=== PATIENT | male | born 1935 | race Caucasian/White ===

== ENCOUNTER → 2017-02-25 | Outpatient (CLI) | payer MEDICARE, OTHER ==
[~2017-02-25] MED LIST: ASPI81CH CHEW; DORZ1SOL2 OU; DORZ2SOL7 EACH EYE; KETO2CRE TOPICAL; LATA0.002 EACH EYE; LEVO75TA3 PO
[2017-02-25 11:54] LABS: AUTOMATED NEUTROPHIL # 3.4 TH/MM3 (1.8-7.7); BASOPHIL # 0.1 TH/MM3 (0-0.2); EOSINOPHIL # 0.1 TH/MM3 (0-0.4); EOSINOPHIL % 2.2 % (0.0-4.0); HEMATOCRIT 36.6 % (39.0-51.0); HEMO FLAGS DIFF FINAL; LYMPH % 19.3 % (9.0-44.0); MEAN CELL VOLUME 93.3 FL (80.0-100.0); MEAN CORPUSCULAR HEMOGLOBIN 31.1 PG (27.0-34.0); MEAN CORPUSCULAR HGB CONC 33.3 % (32.0-36.0); MONO % 10.6 % (0.0-8.0); NEUT % 66.9 % (16.0-70.0); PLATELET COUNT 158 TH/MM3 (150-450); RED BLOOD COUNT 3.92 MIL/MM3 (4.50-5.90); RED CELL DISTRIBUTION WIDTH 14.3 % (11.6-17.2); WHITE BLOOD COUNT 5.1 TH/MM3 (4.0-11.0)
[2017-02-25 12:27] LABS: ANION GAP 5 MEQ/L (5-15); AST (GOT) 23 U/L (15-37); BICARBONATE 30.9 MEQ/L (21.0-32.0); BLOOD UREA NITROGEN 29 MG/DL (7-18); CHLORIDE 106 MEQ/L (98-107); GLOMERULAR FILTRATION RATE 71 ML/MIN (>89); GLUCOSE,FASTING 95 MG/DL (74-99); POTASSIUM 4.4 MEQ/L (3.5-5.1); SODIUM (NA) 142 MEQ/L (136-145)
[2017-02-25 12:37] LABS: ALKALINE PHOSPHATASE 89 U/L (45-117); ALT (GPT) 18 U/L (12-78); FREE T4 1.36 NG/DL (0.76-1.46); LDL CHOLESTEROL 156 MG/DL (0-99); TOTAL BILIRUBIN ADULT 0.5 MG/DL (0.2-1.0)
== END ==
LOC: PLAB 08:30
PROVIDERS: ATTEND Family Medicine
DX: I10 Essential (primary) hypertension (principal); E78.5 Hyperlipidemia, unspecified; E03.9 Hypothyroidism, unspecified; Z12.5 Encounter for screening for malignant neoplasm of prostate
CPT/HCPCS: 80053; 80061; 84439; 84443; 85025; G0103

== ENCOUNTER 2017-07-04 13:24 | Day surgery (SDC) | payer MEDICARE, OTHER ==
[2017-07-04 14:49] VITALS: BP 192/112; PULSE 60; RESP 18; TEMP 97.7; O2SAT 97
--- NOTE | 2017-07-04 16:16 | RADRPT ---
EXAM DATE/TIME: 07/04/2017 00:00 [facility] COMPARISON : INDICATIONS : Endoleak post AAA OBJECTIVE: Temperature: 97.7 Heart Rate: 60 Blood Pressure: 192/112 Respiratory: 19 Oximetry: 97 PNEUMONIA VACCINE: HISTORY OF PRESENT ILLNESS: The patient is an 82-year-old who underwent endograft repair of an infrarenal abdominal aortic aneury sm in 2014. The patient was noted to have enlargement of the aneurysm sac on its followup CT examinat ion in 2015. The patient underwent attempt at endoleak occlusion in 2015. The followup CT examination of 2016 demonstrates continued enlargement of the aneurysm sac with either endoleak along the care management coordinator ior aspect of the aneurysm sac or endothelialization of the aneurysm sac. PAST MEDICAL HISTORY : 1. Congestive heart failure. 2. Hypertension. 3. Chronic obstructive pulmonary disease. 4. Gastroesophageal reflux disease. 5. endoleak 6. Hypercholesterolemia. 7. Carcinoma, colon. 8. glaucoma; hard of hearing; anxiety PAST SURGICAL HISTORY : 1. abdominal aortic aneurysm repair (AAA) 2. Endoleak repair post AAA 3. bilateral cataract 4. TURP 5. cervical fusion SOCIAL HISTORY : Tobacco;former. Patient has a ALLERGIES: 1. cefazolin 2. diazepam 3. ceftriaxone 4. Cipro MEDICATIONS: 1. Ehdnvwx24 mg q.d. 2. Cosopt Opth Drops 22.3-6.8 mg q.d. 3. Ketoconazole 2% topical cream prn 4. latanoprost opth drops 0.005% drops q.d. 5. levothyroxine 75 mcg q.d. IMAGING STUDIES: The CT scans from 2014, 2015 2016 were reviewed. PHYSICAL EXAM: Limited evaluation was performed. The patient is a well-developed well-nourished, mildly debilitated 82 year-old. The patient denies shortness of breath or chest pain. Cardiovascular: Regular rate rhythm. Pulmonary: The lungs are clear. Abdomen: The patient's aortic aneurysm is easily palpable from the abdominal wall. ASSESSMENT: The patient continues to have enlargement of the aneurysm sac. There is contrast enhancement along th e posterior aspect of the aneurysm sac I do not see a feeding vessel. The graft itself appears intact . The appearance of this is quite unusual and could represent endothelization of the clot within the aneurysm sac. The enlargement of the aneurysm sac is concerning. The risks, benefits and potential co mplications of intervening versus watchful waiting were discussed in detail with the patient, his wif e and the patient's son the telephone. PLAN: The family is going to discuss the options which were given. If a decision is made to proceed with at tempt at repeat treatment of the aneurysm sac this procedure will be scheduled at their convenience. TIME SPENT: 30 minutes. Jamil Matias MD on July 04, 2017 at 15:59 Board Certified Radiologist. This report was verified electronically.
== END 2017-07-04 15:35 | disposition home or self-care (01) ==
LOC: HROP 13:24 → HRIP 13:26 → HROP 15:35
PROVIDERS: ATTEND Surgery Vascular Surgery
DX: I71.4 Abdominal aortic aneurysm, without rupture (principal)

== ENCOUNTER 2017-08-08 07:57 | Day surgery (SDC) | payer MEDICARE, OTHER ==
[2017-08-08] VITALS (8 sets, daily range): BP systolic 137–180; BP diastolic 61–104; PULSE 48–61; RESP 16–20; TEMP 97.3–97.8; O2SAT 94–98
[~2017-08-08] VITALS: Ht 172.7 cm; Wt 72.7 kg
[~2017-08-08 07:57] MED LIST changes: -DORZ1SOL2 OU
[2017-08-08] MEDS ORDERED: GELATIN 12 MM/7 MM FOAM I-ARTERIAL ONE (07:58)
[2017-08-08] MEDS ORDERED: IODIXANOL 320 MG/ML 50 ML VIAL (for RAD SPEC) I-ARTERIAL ONE (07:58)
[2017-08-08] MEDS ORDERED: CHLORHEXIDINE GLUCONATE 2 % 1 PACK (2 CLOTHS) TOPICAL PRN (08:30)
[2017-08-08] MEDS ORDERED: INSULIN HUMAN REGULAR 1,000 UNITS/10 ML VIAL SQ PRN (08:30)
[2017-08-08] MEDS ORDERED: SODIUM CHLOR 0.9% 1000 ML INJ 1,000 ML IV SCH (08:30)
[2017-08-08] MEDS ORDERED: POVIDONE IODINE 5% (ANTISEPSIS KIT) 4 APPLICATIONS EACH NARE PRN (08:30)
[2017-08-08] MEDS ORDERED: METOPROLOL TARTRATE 25 MG TAB PO PRN (08:30)
[2017-08-08] MEDS ORDERED: SODIUM CHLORID 0.9% 500 ML IV PRN (08:30)
[2017-08-08] MEDS ORDERED: LACTATED RINGER'S 1000 ML IV PRN (08:30)
[2017-08-08 09:18] LABS: BASOPHIL % 0.9 % (0.0-2.0); EOSINOPHIL # 0.1 TH/MM3 (0-0.4); HEMATOCRIT 36.4 % (39.0-51.0); LYMPH % 19.4 % (9.0-44.0); LYMPHOCYTE # 0.9 TH/MM3 (1.0-4.8); MEAN CORPUSCULAR HEMOGLOBIN 31.8 PG (27.0-34.0); MEAN CORPUSCULAR HGB CONC 33.1 % (32.0-36.0); MEAN PLATELET VOLUME 7.2 FL (7.0-11.0); MONO % 11.4 % (0.0-8.0); MONOCYTE # 0.5 TH/MM3 (0-0.9); NEUT % 66.3 % (16.0-70.0); PLATELET COUNT 143 TH/MM3 (150-450); RED BLOOD COUNT 3.79 MIL/MM3 (4.50-5.90); RED CELL DISTRIBUTION WIDTH 14.6 % (11.6-17.2); WHITE BLOOD COUNT 4.5 TH/MM3 (4.0-11.0)
[2017-08-08 09:21] LABS: CREATININE 0.9 MG/DL (0.60-1.30)
[2017-08-08 09:29] LABS: INTERNATIONAL NORMALIZED RATIO 1.1 RATIO; PROTHROMBIN TIME - PATIENT 11.7 SEC (9.8-11.6)
[2017-08-08] MEDS ORDERED: VANCOMYCIN HCL 1000 MG VIAL ONE ×2 (10:57→11:48)
[2017-08-08] MEDS ORDERED: SODIUM CHLOR 0.9% 250 ML INJ 250 ML ONE (10:58)
[2017-08-08] MEDS ORDERED: THROMBIN (TOPICAL) 5,000 UNIT VIAL ONE (11:32)
--- NOTE | 2017-08-08 12:07 | PD.RAD ---
Post Procedure Progress Note Pre Procedure Diagnosis: (1) Endoleak of aortic graft Post Procedure Diagnosis: (1) Endoleak of aortic graft Procedure Date: Aug 08, 2017 Supervising Radiologist: Jamil Matias Estimated blood loss: 2cc Anesthesia: General, Local Plan of Activity Patient to Unit: PACU Patient Condition: Fair Additional Comments: PT. S/P percutaneous access of the AAA for endoleak repair. Multiple embolization coils placed. Gelfoam and thrombin mixed with Vanco placed into the aneurism sac on way out. No flow identified in the aneurism sac post embolization. Full dictated report to follow. See PACS Report for procedural detail/treatment Jamil Matias MD Aug 08, 2017 12:07
--- NOTE | 2017-08-08 12:38 | RADRPT ---
EXAM DATE/TIME: 08/08/2017 09:58 [facility] COMPARISON: CT ABDOMEN & PELVIS W CONTRAST, July 29, 2015, 9:58. INDICATIONS : Abdominal pain. ORAL CONTRAST: No oral contrast ingested. RADIATION DOSE: 5.91 CTDIvol (mGy) MEDICAL HISTORY : Aneurysm, abdominal. Carcinoma, colon. Chronic obstructive pulmonary disease.Congestive heart failure , hypertension. SURGICAL HISTORY : Abdominal aortic aneurysm repair. ENCOUNTER: Initial ACUITY: 1 day PAIN SCALE: 3/10 LOCATION: Bilateral upper quadrant TECHNIQUE: Volumetric scanning of the abdomen and pelvis was performed. Using automated exposure control and ad justment of the mA and/or kV according to patient size, radiation dose was kept as low as reasonably achievable to obtain optimal diagnostic quality images. DICOM format image data is available electro nically for review and comparison. FINDINGS: Clinical history: The patient has a known infrarenal aortic aneurysm the patient is post endograft repair and an attemp t at endovascular repair of a type II endoleak. The aneurysm sac is continue to grow. CT imaging was performed to assess prior to percutaneous access. The limited portion of the lung base visualized demonstrate COPD change but is otherwise clear. The a ppearance of the liver, pancreas and adrenal glands is within normal limits. The examination demonstr ates a punctate granulomatous calcifications within the spleen. There is a 8 cm simple cyst arising f rom the left kidney. There are 2 smaller simple cyst seen arising from the right kidney. The patient's infrarenal aortic aneurysm is again identified. There is no evidence of bowel between t he aneurysm sac and the anterior abdominal wall. There is no free fluid within the pelvis. No iliac or inguinal adenopathy is seen. The prostate is en larged. There are degenerative changes within the spine. CONCLUSION: 1. There is no evidence of bowel between the anterior aspect of the aneurysm sac and the abdominal wa ll. 2. The residual aneurysm sac measures at least 8 cm on today's exam. 3. Large renal cyst on the left. Jamil Matias MD on August 08, 2017 at 12:34 Board Certified Radiologist. This report was verified electronically.
[2017-08-08] MEDS ORDERED: *ENALAPRILAT 1.25 MG/ML VIAL PERIprocedural Use ONLY ONE (12:59)
[2017-08-08] MEDS ORDERED: DO NOT ADM ANY ANTICOAGULANT DRUGS PRN (13:30)
[2017-08-08] MEDS ORDERED: ROCURONIUM INJ 50 MG/5 ML SYRINGE IV PUSH ONE (14:51)
[2017-08-08] MEDS ORDERED: LIDOCAINE HCL 1% PF 5 ML AMPULE OTHER ONE (14:51)
[2017-08-08] MEDS ORDERED: PHENYLEPH/NS 1000 MCG/10 ML SYR IV ONE (14:51)
[2017-08-08] MEDS ORDERED: NEOSTIGMINE 3 MG/3 ML SYR IV ONE (14:51)
[2017-08-08] MEDS ORDERED: GLYCOPYRROLATE 1 MG/5 ML SYRINGE IV PUSH ONE (14:51)
[2017-08-08] MEDS ORDERED: ONDANSETRON HCL 4 MG/2 ML VIAL IV PUSH ONE (14:51)
[2017-08-08] MEDS ORDERED: hydrALAZINE HCL 20 MG/ML VIAL IV ONE (14:51)
[2017-08-08] MEDS ORDERED: LABETALOL HCL 100 MG/20 ML VIAL IV ONE (14:51)
[2017-08-08] MEDS ORDERED: PROPOFOL 200 MG/20 ML AMP IV ONE (14:51)
--- NOTE | 2017-08-08 14:52 | RADRPT ---
EXAM DATE/TIME: 08/08/2017 09:57 [facility] COMPARISON: F/U THRU EXISTING CATHETER, August 08, 2017, 0:00. INDICATIONS : Patient with history of abdominal aortic aneurysm endoleak in need of embolization. MEDICAL HISTORY : CHF, Angina, HTN, HLD, Pericardial effusion, COPD, Colon cancer, AAA, GERD SURGICAL HISTORY : AAA repair, Endoleak repair post AAA, TURP, Cervical fusion, Pericardial drain ENCOUNTER: Subsequent ACUITY: 4-6 months PAIN SCORE: 0/10 LOCATION: Bilateral upper arm FLUORO TIME: 19.9 minutes IMAGE SERIES: 6 ACCESS SITE: Abdominal aneurysm sac CONTRAST: 1.) 60 cc Visipaque (iodixanol) Prophylactic antibiotics were administered with appropriate pre-procedure timing. Vancomycin within 2 hrs of procedure, Ancef (or alternative) within 1 hr of procedure. DEVICE(S): 1.) Abdominal aneurysm sac embolic coil(s) Tornado .[id number] 2.) Abdominal aneurysm sac Bentson wire .[id number] 3.) Abdominal aneurysm sac Gelfoam 12-7MM X2 PROCEDURE : 1. Ultrasound-guided puncture of the access site. 2. Conscious sedation with continuous EKG and Oximetry monitoring. 3. Percutaneous repair of an endoleak post AAA repair. 4. Angiography of the aneurysm sac. Clinical history: The patient is an 82-year-old who is status post endograft repair of abdominal aortic aneurysm. The p atient was noted to have an enlarging aneurysm sac approximately 2 years post procedure. The patient underwent attempt at endovascular treatment of a type II endoleak 07/29/15. A followup CT scan perfor med more recently, demonstrate continued enlargement of the aneurysm sac with some degree of very slo w residual flow in the aneurysm sac. This appeared to be arising from 2 small lumbar arteries. The risks, benefits and alternatives to the procedure were explained to the patient and his family. Von john and written consent was obtained. The site was prepped in sterile fashion. Full sterile techn ique was used, including cap, mask, sterile gloves and gown and a large sterile sheet. Hand hygiene and 2% chlorhexidine and/or betadine/alcohol prep was utilized per protocol for cutaneous antisepsis. Sterile gel and sterile probe cover were utilized for ultrasound guidance. The skin and subcutaneo us tissues were infiltrated with local anesthetic solution. The patient had undergone CT scanning immediately prior to the procedure to ensure there was no bowel anterior to the aneurysm sac. The case was performed as a combined procedure with Dr. Francois. A suitable site above the aneurysm was selected using fluoroscopic guidance. The skin was anesthetize d with 5 cc 1% lidocaine. A 22 gauge needle was advanced to the anterior abdominal wall and into the aneurysm sac without difficulty. This was exchanged for a 0.035 angle Glidewire and a 4 Lebanese hemost atic sheath. A 4 Lebanese glide catheter was advanced to the sheath. The glide catheter was positioned in multiple l ocations within the aneurysm sac. There was definite blood return from the glide catheter however, mu ltiple angiographic runs were performed and no feeding or draining vessel could be identified. Since no feeding or draining vessel could be identified, the decision was made to place multiple embo lization coils within the aneurysm sac. The aneurysm sac was embolized with multiple 10 cm Tornado embolization coils. A total of 9 coils wer e placed. In different positions surround the aneurysm sac. There was still some flow evident with th e aneurysm sac. The mandrel from a Bentson wire was removed. The entire Bentson wire was passed into the aneurysm sac as well. This was followed by a mixture of Gelfoam, vancomycin and a small amount of thrombin. Approximately 7-10 cc of this mixture was instilled into the aneurysm sac. Following this, there was complete cessation of flow within the aneurysm sac. The patient tolerated the procedure well and was returned to PACU in good condition. The exam was performed under general anesthesia. CONCLUSION: 1. Successful embolization of the patient's aneurysm sac. Multiple embolization coils were placed. Jamil Matias MD on August 08, 2017 at 14:43 Board Certified Radiologist. This report was verified electronically.
--- NOTE | 2017-08-08 14:54 | EKG ---
Date Performed: 08/08/2017 Time Performed: 08:36:11 PTAGE: 82 years EKG: SINUS BRADYCARDIA RIGHT BUNDLE BRANCH BLOCK VOLTAGE CRITERIA FOR LVH ABNORMAL ECG PREVIOUS TRACING : 07/29/2015 09.10 Compared to prior tracing no significant change DOCTOR: Amy Sanderson Interpretating Date/Time 08/08/2017 14:51:34
[2017-08-09] MEDS ORDERED: TAMS5CAP PO (19:28)
== END 2017-08-08 16:35 | disposition home or self-care (01) ==
LOC: HSDC 07:57 → HRIP 08:02 → HSDC 16:35
PROVIDERS: ATTEND Surgery Vascular Surgery
DX: T82.330A Leakage of aortic (bifurcation) graft (replacement), initial encounter (principal); I71.4 Abdominal aortic aneurysm, without rupture; I45.10 Unspecified right bundle-branch block; R00.1 Bradycardia, unspecified; I11.0 Hypertensive heart disease with heart failure; I50.9 Heart failure, unspecified; E78.5 Hyperlipidemia, unspecified; J44.9 Chronic obstructive pulmonary disease, unspecified; K21.9 Gastro-esophageal reflux disease without esophagitis; N28.1 Cyst of kidney, acquired; N40.0 Benign prostatic hyperplasia without lower urinary tract symptoms; Z98.1 Arthrodesis status; Z85.038 Personal history of other malignant neoplasm of large intestine; Y83.8 Other surgical procedures as the cause of abnormal reaction of the patient, or of later complication, without mention of misadventure at the time of the procedure; Y82.8 Other medical devices associated with adverse incidents
CPT/HCPCS: 36160; 37242; 74176; 76937; 80048; 85025; 85610; 85730; 86850; 86900; 86901; 93005; C1769; C1887; C1894; J0360; J2370; J2405; J2710; J3010; J3370; J7030; J7050; Q9967

== ENCOUNTER 2017-08-09 15:46 | Emergency (ER) | payer MEDICARE, OTHER ==
[~2017-08-09] VITALS: Ht 172.7 cm; Wt 73.0 kg
[2017-08-09 15:48] VITALS: BP 215/95; PULSE 71; RESP 14; TEMP 98.6; O2SAT 96
[2017-08-09 16:06] VITALS: PULSE 90; RESP 20
[2017-08-09 16:36] LABS: BILIRUBIN, URINE NEG (NEG); BLOOD, URINE MOD (NEG); GLUCOSE,URINE NEG (NEG); KETONE, URINE NEG (NEG); MUCUS URINE FEW /lpf (OCC); NITRITE,URINE NEG (NEG); PH, URINE 5.5 (5.0-8.5); URINE COLOR YELLOW (YELLW/STRAW); URINE LEUKOCYTE ESTERASE NEG (NEG)
--- NOTE | 2017-08-09 16:48 | PD ---
HPI Chief Complaint: Complaint Time Seen by Provider: 15:59 Travel History International Travel<30 days: No Contact w/Intl Traveler<30days: No Traveled to known affect area: No History of Present Illness HPI 82 YO M with PMH of AAA, status post stenting, BPH, status post TURP, HTN, COPD , CAD presents to the ED for evaluation of approximately 12 hours of anuria. Patient states that he underwent percutaneous coiling of his AAA with Dr. Josue Matias of interventional radiology yesterday. He had a catheter placed for the procedure. He has had difficulties urinating since. He endorses occasional dribbling. While the patient was awaiting treatment in the triage area he had 2 large urinary voids. On presentation he complains of lower abdominal pain but has no other complaints. He has a history of a TURP by Dr. Charles, 3 or 4 years ago. The sons at bedside and states that he's had "sluggish urinary output" after anesthesia in the past. His primary care is Dr. Bustos. [facility] Past Medical History Asthma: No Autoimmune Disease: No Blood Disorders: No Anxiety: Yes Depression: No Heart Rhythm Problems: Yes Cancer: Yes Cardiovascular Problems: Yes High Cholesterol: Yes Chemotherapy: No Chest Pain: No Congestive Heart Failure: Yes COPD: Yes Diabetes: No Diminished Hearing: Yes Endocrine: No Gastrointestinal Disorders: Yes (COLON MASS) GERD: No Glaucoma: Yes Genitourinary: Yes Hepatitis: No Hiatal Hernia: No Hypertension: Yes Immune Disorder: No Implanted Vascular Access Dvce: Yes Kidney Stones: No Musculoskeletal: Yes Neurologic: Yes Psychiatric: No Reproductive: No Respiratory: Yes Immunizations Current: Yes Migraines: No Radiation Therapy: No Renal Failure: No Seizures: No Sickle Cell Disease: No Sleep Apnea: No Thyroid Disease: No Ulcer: No Tetanus Vaccination: < 5 Years Influenza Vaccination: No Past Surgical History Abdominal Surgery: Yes (AAA, COLON CA) AICD: No Arteriovenous Shunt: No Body Medical Devices: PLATE AND SCREWS IN NECK Cardiac Surgery: Yes (DRAIN PERICARDIAL EFFUSION) Ear Surgery: Yes (SKIN CA) Endocrine Surgery: No Eye Surgery: Yes Genitourinary Surgery: Yes (COLON CA, TURP) Gynecologic Surgery: No Insulin Pump: No Joint Replacement: No Neurologic Surgery: Yes (NECK DISC FUSION ) Oral Surgery: No Pacemaker: No Thoracic Surgery: No Other Surgery: Yes (32 YRS AGO ANTERIOR CERVICAL FUSION) Social History Alcohol Use: No Tobacco Use: No (QUIT 20 YRS AGO) Substance Use: No Allergies-Medications (Allergen,Severity, Reaction): Coded Allergies: cefazolin (Unverified Allergy, Severe, Confusion, 08/09/17) ceftriaxone (Unverified Allergy, Severe, Confusion, 08/09/17) ciprofloxacin (Unverified Allergy, Severe, Confusion, 08/09/17) diazepam (Unverified Allergy, Intermediate, MADE PT VERY EMOTIONAL, ) Reported Meds & Prescriptions Reported Meds & Active Scripts Active Flomax (Tamsulosin HCl) 0.4 Mg Cap 0.4 Mg PO HS Reported Ketoconazole Topical 2% Cream 1 Applic TOPICAL DAILY Levothyroxine (Levothyroxine Sodium) 75 Mcg Tab 75 Mcg PO DAILY Aspirin 81 Mg Chew 81 Mg CHEW EVERY OTHER DAY Latanoprost Opth Drops (Latanoprost) 0.005% Drops 1 Drop EACH EYE HS Refrigerate until opened. Cosopt Opth Drops (Dorzolamide-Timolol Opth Drops) 22.3-6.8 Mg/Ml Soln 1 Drop EACH EYE BID Review of Systems Except as stated in HPI: all other systems reviewed are Neg Physical Exam Narrative GENERAL: Well-nourished, well-developed pleasant, hard of hearing white male in no acute distress. SKIN: Focused skin assessment warm/dry. Small dressing over a single pinpoint wound just lateral of the umbilicus. No drainage, warmth, erythema, fluctuance or induration noted. HEAD: Normocephalic. EYES: No scleral icterus. No injection or drainage. NECK: Supple, trachea midline. No JVD or lymphadenopathy. CARDIOVASCULAR: Regular rate and rhythm without murmurs, gallops, or rubs. RESPIRATORY: Breath sounds equal bilaterally. No accessory muscle use. GASTROINTESTINAL: Abdomen soft, nondistended. No palpable masses. Tender in the bilateral lower quadrants. Positive voluntary guarding. MUSCULOSKELETAL: No cyanosis, or edema. Noted to walk with a slow but normal gait. Moves extremities spontaneously. BACK: Nontender without obvious deformity. No CVA tenderness. Data Data Last Documented VS Vital Signs Date Time Temp Pulse Resp B/P (MAP) Pulse Ox O2 Delivery O2 Flow Rate FiO2 08/09/17 20:20 08/09/17 19:28 67 18 94 Room Air 08/09/17 15:48 98.6 Orders Orders Bladder Scan PRN (08/09/17 15:59) Urinalysis - C+S If Indicated (08/09/17 15:59) Complete Blood Count With Diff (08/09/17 16:56) Basic Metabolic Panel (Bmp) (08/09/17 16:56) ^ Insert Iv (08/09/17 16:56) Ct Pelvis W/O Iv Contrast (08/09/17 ) Urinary Catheter Insert/Apply (08/09/17 18:32) Tamsulosin (Flomax) (08/09/17 19:30) Bag, Leg 32oz Sterile Large Ea (08/09/17 19:39) Cath, Leg Strap Ea (08/09/17 19:39) Ed Discharge Order (08/09/17 20:08) Labs Laboratory Tests Test 08/09/17 16:20 08/09/17 19:25 Urine Color YELLOW Urine Turbidity CLEAR Urine pH 5.5 Urine Specific [place] 1.014 Urine Protein NEG mg/dL Urine Glucose (UA) NEG mg/dL Urine Ketones NEG mg/dL Urine Occult Blood MOD Urine Nitrite NEG Urine Bilirubin NEG Urine Urobilinogen LESS THAN 2.0 MG/DL Urine Leukocyte Esterase NEG Urine RBC 8 /hpf Urine WBC LESS THAN 1 /hpf Urine Mucus FEW /lpf Microscopic Urinalysis Comment CULT NOT INDICATED White Blood Count 7.4 TH/MM3 Red Blood Count 3.69 MIL/MM3 Hemoglobin 12.0 GM/DL Hematocrit 35.4 % Mean Corpuscular Volume 96.0 FL Mean Corpuscular Hemoglobin 32.4 PG Mean Corpuscular Hemoglobin Concent 33.7 % Red Cell Distribution Width 14.4 % Platelet Count 133 TH/MM3 Mean Platelet Volume 7.6 FL Neutrophils (%) (Auto) 76.2 % Lymphocytes (%) (Auto) 9.4 % Monocytes (%) (Auto) 13.7 % Eosinophils (%) (Auto) 0.4 % Basophils (%) (Auto) 0.3 % Neutrophils # (Auto) 5.6 TH/MM3 Lymphocytes # (Auto) 0.7 TH/MM3 Monocytes # (Auto) 1.0 TH/MM3 Eosinophils # (Auto) 0.0 TH/MM3 Basophils # (Auto) 0.0 TH/MM3 CBC Comment DIFF FINAL Differential Comment Blood Urea Nitrogen 16 MG/DL Creatinine 1.09 MG/DL Random Glucose 111 MG/DL Calcium Level 8.9 MG/DL Sodium Level 137 MEQ/L Potassium Level 4.4 MEQ/L Chloride Level 102 MEQ/L Carbon Dioxide Level 27.4 MEQ/L Anion Gap 8 MEQ/L Estimat Glomerular Filtration Rate 64 ML/MIN MDM Medical Decision Making Medical Screen Exam Complete: Yes Emergency Medical Condition: Yes Differential Diagnosis Acute urinary retention versus postoperative complication versus urinary tract infection versus other Narrative Course 82 YO M with PMH of AAA, status post stenting, BPH, status post TURP, HTN, COPD , CAD presents to the ED for evaluation of approximately 12 hours of anuria. Patient states that he underwent percutaneous coiling of his AAA with Dr. Josue Matias of interventional radiology yesterday. He had a catheter placed for the procedure. He has had difficulties urinating since. He endorses occasional dribbling. While the patient was awaiting treatment in the triage area he had 2 large urinary voids. On presentation he complains of lower abdominal pain but has no other complaints. He has a history of a TURP by Dr. Charles, 3 or 4 years ago. The sons at bedside and states that he's had "sluggish urinary output" after anesthesia in the past. His primary care is Dr. Bustos. Vitals reviewed. Patient is hypertensive on presentation but this resolved during the course of the exam. Physical exam reveals a pleasant, hard of hearing white male in no acute distress. There is a small dressing in place just left of the umbilicus. The patient has diffuse tenderness in the lower quadrants but is difficult to examine secondary to voluntary guarding. exam reveals no acute abnormality. Bladder scan reveals residual approximate 450 ML' s urine. I spoke with Dr. Brenner radiology, he recommends CT abdomen and pelvis with delayed imaging. This was arranged with CT and Dr Schultz was present during the exam. CT reveals a typical ADLs are in place there is no bleeding from the AAA and the bladder is distended. Law catheter was inserted and urine output around 1500 ML's was drained. BUN and creatinine within normal limits. No culture indicated of the UA. The patient will go home with his indwelling catheter due to urinary retention. He is instructed that he should not remove the catheter until he sees Melvin, to contact Dr. Charles as soon as possible for an upcoming appointment. The patient and his son indicated understanding of the instructions and are agreeable to the care plan. The patient is stable and discharged home. Diagnosis Primary Impression: Acute urinary retention Referrals: José Charles DO Patient Instructions: General Instructions, Urinary Retention in Men (ED) Additional Instructions: Do not remove the catheter until seen by Dr. Charles. Take Flomax as prescribed. Return to the ED for worsening symptoms or any urgent or emergent medical condition. Med/Other Pt SpecificInfo: Prescription(s) given Scripts Tamsulosin (Flomax) 0.4 Mg Cap 0.4 MG PO HS for Manage Prostate Problems, #30 CAP 0 Refills Prov: Yee Parker MD 08/09/17 Disposition: 01 DISCHARGE HOME Condition: Stable Xochilt Wheatley Aug 09, 2017 16:48
--- NOTE | 2017-08-09 18:31 | RADRPT ---
EXAM DATE/TIME: 08/09/2017 17:51 [facility] COMPARISON: AORTOGRAM, ABDOMINAL, August 08, 2017, 9:57. INDICATIONS : aAbdominal pain. ORAL CONTRAST: No oral contrast ingested. RADIATION DOSE: 6.77 CTDIvol (mGy) MEDICAL HISTORY : Cardiovascular disease. Congestive heart failure. Hypertension.Colon ca SURGICAL HISTORY : AAA ENCOUNTER: Initial ACUITY: 1 day PAIN SCALE: 7/10 LOCATION: abdominal. TECHNIQUE: Volumetric scanning of the pelvis was performed. Using automated exposure control and adjustment of the mA and/or kV according to patient size, radiation dose was kept as low as reasonably achievable t o obtain optimal diagnostic quality images. DICOM format image data is available electronically for review and comparison. FINDINGS: Compare August 08. Since the previous exam the patient is status post embolization the aneurysm sac with multiple embolization coils present posteriorly. There is some residual contrast within the aneu rysm sac. Stable aneurysmal dilatation of both iliac arteries. Residual contrast in bladder. Bilateral renal cysts are stable. Nonobstructing left renal calcifications probably vascular. No pelvic mass. Mild anasarca. No bowel obstruction, free air or free fluid. CONCLUSION: 1. Status post embolization of aneurysm sac with multiple embolization coils now present as well as c ontrast within the sac. See special procedures report. 2. No bowel obstruction, free air or free fluid. Otherwise no new findings compared with August 08. Jeovanny Carbajal MD on August 09, 2017 at 18:24 Board Certified Radiologist. This report was verified electronically.
[2017-08-09 19:28] VITALS: BP 161/68; PULSE 67; RESP 18; O2SAT 94
[2017-08-09] MEDS ORDERED: TAMS5CAP PO ×2 (19:28)
[2017-08-09] MEDS ORDERED: TAMSULOSIN HCL 0.4 MG CAP PO ONE ×2 (19:30)
[2017-08-09 19:51] LABS: AUTOMATED NEUTROPHIL # 5.6 TH/MM3 (1.8-7.7); BASOPHIL % 0.3 % (0.0-2.0); EOSINOPHIL % 0.4 % (0.0-4.0); HEMATOCRIT 35.4 % (39.0-51.0); LYMPH % 9.4 % (9.0-44.0); LYMPHOCYTE # 0.7 TH/MM3 (1.0-4.8); MEAN CORPUSCULAR HEMOGLOBIN 32.4 PG (27.0-34.0); MEAN CORPUSCULAR HGB CONC 33.7 % (32.0-36.0); MEAN PLATELET VOLUME 7.6 FL (7.0-11.0); MONO % 13.7 % (0.0-8.0); NEUT % 76.2 % (16.0-70.0); PLATELET COUNT 133 TH/MM3 (150-450); RED BLOOD COUNT 3.69 MIL/MM3 (4.50-5.90); RED CELL DISTRIBUTION WIDTH 14.4 % (11.6-17.2); WHITE BLOOD COUNT 7.4 TH/MM3 (4.0-11.0)
[2017-08-09 20:04] LABS: BICARBONATE 27.4 MEQ/L (21.0-32.0); CALCIUM 8.9 MG/DL (8.5-10.1); CREATININE 1.09 MG/DL (0.60-1.30)
== END 2017-08-09 20:55 | disposition home or self-care (01) ==
LOC: NEPE 15:46
DX: R33.9 Retention of urine, unspecified (principal); R03.0 Elevated blood-pressure reading, without diagnosis of hypertension; N40.0 Benign prostatic hyperplasia without lower urinary tract symptoms; J44.9 Chronic obstructive pulmonary disease, unspecified; I25.10 Atherosclerotic heart disease of native coronary artery without angina pectoris; F41.9 Anxiety disorder, unspecified; I11.0 Hypertensive heart disease with heart failure; I50.9 Heart failure, unspecified; E78.00 Pure hypercholesterolemia, unspecified
CPT/HCPCS: 51702; 72192; 80048; 81001; 85025

== ENCOUNTER 2017-08-15 09:41 | Day surgery (SDC) | payer MEDICARE, OTHER ==
[~2017-08-15 09:41] MED LIST changes: +ASPI-516 CHEW; -ASPI81CH CHEW; +TAMS5CAP PO
[2017-08-15 10:02] VITALS: BP 160/80; PULSE 67; RESP 20; TEMP 98; O2SAT 99
== END 2017-08-15 11:13 | disposition home or self-care (01) ==
LOC: HROP 09:41 → HRIP 09:42 → HROP 11:13
PROVIDERS: ATTEND Radiology Body Imaging
DX: T82.330A Leakage of aortic (bifurcation) graft (replacement), initial encounter (principal)

== ENCOUNTER 2018-02-27 08:49 | Inpatient (IN) | payer MEDICARE, OTHER ==
[2018-02-27] VITALS (13 sets, daily range): BP systolic 106–200; BP diastolic 54–108; PULSE 54–71; RESP 20–24; TEMP 97.5–98.3; O2SAT 95–100
[~2018-02-27] VITALS: Ht 177.8 cm; Wt 50.0 kg
[2018-02-27] MEDS ORDERED: SODIUM CHLORIDE 0.9% FLUSH 10 ML FLUSH IV FLUSH PRN (09:00)
--- NOTE | 2018-02-27 09:12 | PD ---
HPI . Altered mental status Chief Complaint: Altered Mental Status Time Seen by Provider: 08:57 Travel History International Travel<30 days: No Contact w/Intl Traveler<30days: No Traveled to known affect area: No History of Present Illness HPI This is an 83-year-old patient brought to us by [facility] for acutely altered mental status. No further history is obtainable from the patient. EMS reports that his only medical problem is glaucoma. He is reportedly "feeble" but able to take care of his own ADLs. He does live at home with his elderly . On review of his records, he has a history of A. fib, congestive heart failure, colon cancer, previous respiratory failure, previous DVT in his left upper extremity and previous acute kidney injury in addition to his reported history of glaucoma. PFSH Past Medical History Asthma: No Autoimmune Disease: No Blood Disorders: No Anxiety: Yes Depression: No Heart Rhythm Problems: Yes Cancer: Yes Cardiovascular Problems: Yes High Cholesterol: Yes Chemotherapy: No Chest Pain: No Congestive Heart Failure: Yes COPD: Yes Diabetes: No Diminished Hearing: Yes Endocrine: No Gastrointestinal Disorders: Yes (COLON MASS) GERD: No Glaucoma: Yes Genitourinary: Yes Hepatitis: No Hiatal Hernia: No Hypertension: Yes Immune Disorder: No Implanted Vascular Access Dvce: Yes Kidney Stones: No Musculoskeletal: Yes Neurologic: Yes Psychiatric: No Reproductive: No Respiratory: Yes Immunizations Current: Yes Migraines: No Radiation Therapy: No Renal Failure: No Seizures: No Sickle Cell Disease: No Sleep Apnea: No Thyroid Disease: No Ulcer: No Past Surgical History Abdominal Surgery: Yes (AAA, COLON CA) AICD: No Arteriovenous Shunt: No Body Medical Devices: PLATE AND SCREWS IN NECK Cardiac Surgery: Yes (DRAIN PERICARDIAL EFFUSION) Ear Surgery: Yes (SKIN CA) Endocrine Surgery: No Eye Surgery: Yes Genitourinary Surgery: Yes (COLON CA, TURP) Gynecologic Surgery: No Insulin Pump: No Joint Replacement: No Neurologic Surgery: Yes (NECK DISC FUSION ) Oral Surgery: No Pacemaker: No Thoracic Surgery: No Other Surgery: Yes (32 YRS AGO ANTERIOR CERVICAL FUSION) Social History Alcohol Use: No Tobacco Use: No (QUIT 20 YRS AGO) Substance Use: No Allergies-Medications (Allergen,Severity, Reaction): Coded Allergies: cefazolin (Unverified Allergy, Severe, Confusion, 02/27/18) ceftriaxone (Unverified Allergy, Severe, Confusion, 02/27/18) ciprofloxacin (Unverified Allergy, Severe, Confusion, 02/27/18) diazepam (Unverified Allergy, Intermediate, MADE PT VERY EMOTIONAL, ) Reported Meds & Prescriptions Reported Meds & Active Scripts Active Reported Ketoconazole Topical 2% Cream 1 Applic TOPICAL DAILY Levothyroxine (Levothyroxine Sodium) 75 Mcg Tab 75 Mcg PO DAILY Aspirin 81 Mg Chew 81 Mg CHEW EVERY OTHER DAY Latanoprost Opth Drops (Latanoprost) 0.005% Drops 1 Drop EACH EYE HS Refrigerate until opened. Cosopt Opth Drops (Dorzolamide-Timolol Opth Drops) 22.3-6.8 Mg/Ml Soln 1 Drop EACH EYE BID Review of Systems ROS Limitations: Intubated Physical Exam Narrative GENERAL: Thin, elderly male who presents to us by EMS on the stretcher with oxygen in place. SKIN: warm/dry. HEAD: Normocephalic. Atraumatic. EYES: His left pupil is about 4 or 5 mm while the right pupil is 1 mm. ENT: No nasal bleeding or discharge. Mucous membranes pink and moist. Dentures. NECK: Trachea midline. Full range of motion without pain.. CARDIOVASCULAR: Regular rate and rhythm. Heart sounds are normal. RESPIRATORY: Sonorous, slow respirations. GASTROINTESTINAL: Abdomen soft. Nontender. Bowel sounds present. Nondistended. MUSCULOSKELETAL: No obvious deformities. NEUROLOGICAL: GCS 3. He appears to have intermittent decerebrate posturing on the left. PSYCHIATRIC: Unable to assess Data Data Orders Orders Electrocardiogram (02/27/18 08:57) Complete Blood Count With Diff (02/27/18 08:57) Comprehensive Metabolic Panel (02/27/18 08:57) Prothrombin Time / Inr (Pt) (02/27/18 08:57) Act Partial Throm Time (Ptt) (02/27/18 08:57) Troponin I (02/27/18 08:57) Lactic Acid Sepsis Protocol (02/27/18 08:57) Chest, Single Ap (02/27/18 08:57) Ct Brain W/O Iv Contrast(Rout) (02/27/18 08:57) Blood Glucose (02/27/18 08:57) Ecg Monitoring (02/27/18 08:57) Iv Access Insert/Monitor (02/27/18 08:57) Oximetry (02/27/18 08:57) Sodium Chloride 0.9% Flush (Ns Flush) (02/27/18 09:00) Mannitol Inj (Mannitol Inj) (02/27/18 09:15) Admit Order (Ed Use Only) (02/27/18 ) [employer] / Telemetry EVY.Q8H (02/27/18 09:03) Vital Signs (Adult) Q4H (02/27/18 09:03) Diet Npo (02/27/18 Breakfast) Activity Bed Rest (02/27/18 09:03) Notify Dr: Other (02/27/18 09:03) [facility] Medical Decision Making Medical Screen Exam Complete: Yes Emergency Medical Condition: Yes Medical Record Reviewed: Yes (see [facility] for review of records) Interpretation(s) EKG shows sinus bradycardia at 58. He has a right bundle branch block. I do not see any acute ischemic changes. Differential Diagnosis Differential diagnosis of altered mental status includes but is not limited to infection, electrolyte abnormality, neurological event, intoxication Narrative Course This patient presents to us via [facility] for acutely altered mental status. His left pupil is much larger than the right. He has sonorous, slow respirations. Therefore, the decision to intubate was made. The plan was to intubate him and go straight to CAT scan. IV access had been lost during the transfer. I was able to intubate the patient with no medications. Our CT scanner is down. It will be down for at least another hour or so. I have consulted the cashier office emergently. The patient will be transferred emergently to [facility] to go directly to CT. From there, he will be admitted to the [facility]. The patient will be given mannitol prior to the transfer. I have ordered the CT along with labs. The patient's status has not changed at all while in our emergency department. His left pupil continues to be larger than the right and he continues to have decerebrate posturing on the left. Critical Care Narrative Aggregate critical care time was 30 minutes. Time to perform other separately billable procedures was not included in the critical care time. My time did not include minutes spent treating any other patients simultaneously or on activities that did not directly contribute to the patient's treatment. The services I provided to this patient were to treat and/or prevent clinically significant deterioration due to AMS, GCS 3, decerebrate posturing I provided critical care services requiring my management, as noted below: Chart data review, documentation time, medication orders and management, vital sign assessments/reviewing monitor data, ordering and reviewing lab tests, ordering and interpreting/reviewing x-rays and diagnostic studies, care of the patient and discussion of the patient with the admitting physicians Procedures Procedure Narrative INTUBATION: The patient was put in optimal position for the procedure. No drugs were used as we did not have IV access at the time. The patient's mental status was such that sedation was not necessary. The patient was intubated with a 7.5 cuffed endotracheal tube. Tube placement was confirmed by visualization of the tube and balloon passing through the cords, capnometry and subsequent chest x-ray. Breath sounds were equal and well aerated bilaterally postintubation. No breath sounds over stomach. Patient tolerated procedure well. Physician Communication Physician Communication Dr. Du Diagnosis Primary Impression: Altered mental status Qualified Codes: R40.2431 - Tim coma scale score 3-8, in the field [emt or ambulance] Admitting Information Admitting Physician Requests: Admit Condition: Serious Gracie Calle MD February 27, 2018 09:12
[2018-02-27] MEDS ORDERED: MANNITOL 12.5 GM/50 ML VIAL IV ONE (09:15)
--- NOTE | 2018-02-27 09:34 | RADRPT ---
EXAM DATE/TIME: 02/27/2018 09:12 [facility] COMPARISON: No previous studies available for comparison. INDICATIONS : Post intubation. MEDICAL HISTORY : Cardiovascular disease. Congestive heart failure. Hypertension.Colon ca SURGICAL HISTORY : Abdominal aortic aneurysm repair. ENCOUNTER: Initial ACUITY: 1 day PAIN SCORE: Non-responsive. LOCATION: Bilateral chest FINDINGS: There is an endotracheal tube in place. The tip is approximately 3 cm above the lazara. No evidence o f pneumothorax. There is elevation of the right hemidiaphragm. Otherwise, the lungs are grossly clear . No definite pleural effusions. Size is within normal limits. CONCLUSION: The endotracheal tube appears in good position. No evidence of pneumothorax. Kavon Sinha MD on February 27, 2018 at 9:30 Board Certified Radiologist. This report was verified electronically.
[2018-02-27 09:46] LABS: BASOPHIL % 0.4 % (0.0-2.0); EOSINOPHIL # 0.1 TH/MM3 (0-0.4); EOSINOPHIL % 1.7 % (0.0-4.0); HEMATOCRIT 34.2 % (39.0-51.0); HEMOGLOBIN 11.2 GM/DL (13.0-17.0); LYMPH % 13.7 % (9.0-44.0); LYMPHOCYTE # 0.9 TH/MM3 (1.0-4.8); MEAN CELL VOLUME 93.2 FL (80.0-100.0); MEAN CORPUSCULAR HEMOGLOBIN 30.6 PG (27.0-34.0); MEAN CORPUSCULAR HGB CONC 32.8 % (32.0-36.0); MEAN PLATELET VOLUME 7.2 FL (7.0-11.0); MONO % 7.7 % (0.0-8.0); MONOCYTE # 0.5 TH/MM3 (0-0.9); NEUT % 76.5 % (16.0-70.0); PLATELET COUNT 153 TH/MM3 (150-450); RED BLOOD COUNT 3.67 MIL/MM3 (4.50-5.90); RED CELL DISTRIBUTION WIDTH 14.1 % (11.6-17.2); WHITE BLOOD COUNT 6.5 TH/MM3 (4.0-11.0)
[2018-02-27 09:58] LABS: INTERNATIONAL NORMALIZED RATIO 1.2 RATIO; PROTHROMBIN TIME - PATIENT 11.7 SEC (9.8-11.6)
--- NOTE | 2018-02-27 10:19 | RADRPT ---
EXAM DATE/TIME: 02/27/2018 09:52 [facility] COMPARISON: No previous studies available for comparison. INDICATIONS : Altered mental status. RADIATION DOSE: 56.35 CTDIvol (mGy) MEDICAL HISTORY : Chronic obstructive pulmonary disease. Congestive heart failure. Hypertension.Colorectal cancer. SURGICAL HISTORY : Fusion, cervical. Abdominal aortic aneurysm repair.Colon resection.TURP ENCOUNTER: Initial ACUITY: 1 day PAIN SCALE: 0/10 LOCATION: cranial TECHNIQUE: Multiple contiguous axial images were obtained of the head. Using automated exposure control and adj ustment of the mA and/or kV according to patient size, radiation dose was kept as low as reasonably a chievable to obtain optimal diagnostic quality images. DICOM format image data is available electro nically for review and comparison. FINDINGS: There is extensive bilateral intracranial hemorrhage, left greater than right. There is diffuse cereb ral edema. There is a large intraparenchymal hemorrhage involving the left temporal parietal lobe jessica suring 9.5 x 5.4 cm. The acute hemorrhage extends into the left ventricle. There is acute hemorrhage in the posterior horn of the right lateral ventricle. There some mild dilatation of the ventricles. T here is a small focal area of hemorrhage high along the right cerebral vertex. There is prominent in traparenchymal hemorrhage extending up to the left cerebral vertex. There is mass effect and midline shift to the right by approximately 1 cm. There is hemorrhage in the dilated third ventricle. The fou rth ventricle appears to be small in size with acute hemorrhage. There is some effacement of the quad rigeminal plate cisterns at the base of the brain. No significant subdural hematomas are demonstrated . There is mild subarachnoid hemorrhage bilaterally. CONCLUSION: Extensive intracranial hemorrhage as noted above. Large acute intraparenchymal hemorrhage in the left temporal parietal lobe measuring at least 9.5 x 5.4 cm. There is mass effect and midline shift to th e right by at least 1 cm. There is diffuse intraventricular hemorrhage. Kavon Sinha MD on February 27, 2018 at 10:11 Board Certified Radiologist. This report was verified electronically.
[2018-02-27 10:23] LABS: LACTIC ACID SEPSIS PROTOCOL 2.3 mmol/L (0.4-2.0)
--- NOTE | 2018-02-27 11:20 | HHI.HP ---
[facility] Service Critical Care Medicine Primary Care Physician Rosamaria Bustos MD Admission Diagnosis AMS, GCS 3 Diagnosis: Chief Complaint: altered mental status Travel History International Travel<30 Days: No Contact w/Intl Traveler <30 Da: No Traveled to Known Affected Are: No History of Present Illness This is an 83yM with an unknown history who presented by EMS for acute altered mental status. per EMS, he was last seen normal around midnight and was found unresponsive on the floor this morning by his . In the [place] emergency department, he was found to be a GCS 3 with a blown left pupil. He was emergently intubated in the emergency department. He was emergently transferred to [facility] for evaluation. I met the patient in the CT scanner with the [facility] team. His non-contrasted head CT is significant for massive intraparenchymal hemorrhage with intraventricular spread, >1cm midline shift, and evidence of transtentorial herniation. He was severely hypertensive and was started on nicardipine infusion. Due to the patient's clinical condition, no additional information is available from him. ROS unobtainable. Review of Systems ROS Limitations: Clinical Condition, Intubated, Altered Mental Status, Unresponsive Past Family Social History Allergies: Coded Allergies: cefazolin (Unverified Allergy, Severe, Confusion, 02/27/18) ceftriaxone (Unverified Allergy, Severe, Confusion, 02/27/18) ciprofloxacin (Unverified Allergy, Severe, Confusion, 02/27/18) diazepam (Unverified Allergy, Intermediate, MADE PT VERY EMOTIONAL, ) Past Medical History Unknown and unobtainable secondary to the clinical condition the patient Past Surgical History Unknown and unobtainable secondary to the clinical condition the patient Reported Medications Unknown and unobtainable secondary to the clinical condition the patient. Per EMS reports, he takes an aspirin Active Ordered Medications See MAR Family History Unknown and unobtainable secondary to the clinical condition the patient Social History Unknown and unobtainable secondary to the clinical condition the patient Physical Exam Vital Signs Vital Signs Date Time Temp Pulse Resp B/P (MAP) Pulse Ox O2 Delivery O2 Flow Rate FiO2 02/27/18 10:15 95 100 02/27/18 10:14 100 100 02/27/18 09:42 02/27/18 09:42 60 200/108 (138) 99 02/27/18 09:35 67 199/90 (126) 100 02/27/18 09:30 97.5 61 24 199/86 (123) 98 02/27/18 09:29 100 Ventilator 100 02/27/18 09:14 Ventilator 02/27/18 09:06 97.5 61 20 199/86 (123) 98 Non-Rebreather Physical Exam GENERAL: Frail elderly male, lying in bed, intubated, unresponsive HEENT: Normocephalic. Atraumatic. Left pupil is 5 mm, fixed, dilated. Right pupil is 2 mm also not responsive. Mucous membranes are moist NECK: Trachea is midline. There is no JVD. CHEST: Equal chest rise. Does have spontaneous respirations. CARDIOVASCULAR: Normal rate, regular rhythm. Appears sinus by telemetry. Severely hypotensive with systolic in the 200s on my first evaluation ABDOMEN: Soft, nontender, nondistended. No guarding. MUSCULOSKELETAL: Pulses 2+. No peripheral edema. NEUROLOGICAL: GCS of 4 (E1V1M2). Extensor posturing in the upper extremities. Flexor posturing in the lower extremities. Upgoing Babinski. Positive corneals. positive cough. Gag reflex is intact on the right, absent on the left. Pupils as above. Intact respiratory drive. Hyperreflexic on the right. Positive myoclonus on the right. Laboratory Laboratory Tests Test 02/27/18 08:00 02/27/18 09:24 White Blood Count 6.5 Red Blood Count 3.67 Hemoglobin 11.2 Hematocrit 34.2 Mean Corpuscular Volume 93.2 Mean Corpuscular Hemoglobin 30.6 Mean Corpuscular Hemoglobin Concent 32.8 Red Cell Distribution Width 14.1 Platelet Count 153 Mean Platelet Volume 7.2 Neutrophils (%) (Auto) 76.5 Lymphocytes (%) (Auto) 13.7 Monocytes (%) (Auto) 7.7 Eosinophils (%) (Auto) 1.7 Basophils (%) (Auto) 0.4 Neutrophils # (Auto) 5.0 Lymphocytes # (Auto) 0.9 Monocytes # (Auto) 0.5 Eosinophils # (Auto) 0.1 Basophils # (Auto) 0.0 CBC Comment DIFF FINAL Differential Comment Prothrombin Time 11.7 Prothromb Time International Ratio 1.2 Activated Partial Thromboplast Time 24.3 Lactic Acid Level 2.3 Blood Gas Puncture Site RT RADIAL Blood Gas Patient Temperature 98.6 Blood Gas HCO3 26 Blood Gas Base Excess 1.3 Blood Gas Oxygen Saturation 98 Arterial Blood pH 7.39 Arterial Blood Partial Pressure CO2 44 Arterial Blood Partial Pressure O2 186 Arterial Blood Oxygen Content 14.9 Arterial Blood Carboxyhemoglobin 1.4 Arterial Blood Methemoglobin 0.9 Blood Gas Hemoglobin 10.6 Oxygen Delivery Device AMBU Blood Gas Inspired Oxygen 100 Result Diagram: 02/27/18 0800 Imaging Last Impressions Head CT 02/27/18856 Signed Impressions: Service Date/Time: February 09:52 - CONCLUSION: Extensive intracranial hemorrhage as noted above. Large acute intraparenchymal hemorrhage in the left temporal parietal lobe measuring at least 9.5 x 5.4 cm. There is mass effect and midline shift to the right by at least 1 cm. There is diffuse intraventricular hemorrhage. Kavon Sinha MD Chest X-Ray 02/27/18856 Signed Impressions: Service Date/Time: February 09:12 - CONCLUSION: The endotracheal tube appears in good position. No evidence of pneumothorax. Kavon Sinha MD Capjeremiasi VTE Risk Assessment Caprini VTE Risk Assessment: Mod/High Risk (score >= 2) VTE Pharm Contraindication: Intracranial lesions Caprini Risk Assessment Model Point Value = 1 Point Value = 2 Point Value = 3 Point Value = 5 Age 41-60 Minor surgery BMI > 25 kg/m2 Swollen legs Varicose veins or History of unexplained or recurrent spontaneous Oral contraceptives or hormone replacement Sepsis (< 1 month) Serious lung disease, including pneumonia (< 1 month) Abnormal pulmonary function Acute myocardial infarction Congestive heart failure (< 1 month) History of inflammatory bowel disease Medical patient at bed rest Age 61-74 Arthroscopic surgery Major open surgery (> 45 min) Laparoscopic surgery (> 45 min) Malignancy Confined to bed (> 72 hours) Immobilizing plaster cast Central venous access Age >= 75 History of VTE Family history of VTE Factor V Leiden Prothrombin [id number] Lupus anticoagulant Anticardiolipin antibodies Elevated serum homocysteine Heparin-induced thrombocytopenia Other congenital or acquired thrombophilia Stroke (< 1 month) Elective arthroplasty Hip, pelvis, or leg fracture Acute spinal cord injury (< 1 month) Prophylaxis Regimen Total Risk Factor Score Risk Level Prophylaxis Regimen 0-1 Low Early ambulation 2 Moderate Order ONE of the following: *Sequential Compression Device (SCD) *Heparin 5000 units SQ BID 3-4 Higher Order ONE of the following medications: *Heparin 5000 units SQ TID *Enoxaparin/Lovenox 40 mg SQ daily (WT < 150 kg, CrCl > 30 mL/min) *Enoxaparin/Lovenox 30 mg SQ daily (WT < 150 kg, CrCl > 10-29 mL/min) *Enoxaparin/Lovenox 30 mg SQ BID (WT < 150 kg, CrCl > 30 mL/min) AND/OR *Sequential Compression Device (SCD) 5 or more Highest Order ONE of the following medications: *Heparin 5000 units SQ TID (Preferred with Epidurals) *Enoxaparin/Lovenox 40 mg SQ daily (WT < 150 kg, CrCl > 30 mL/min) *Enoxaparin/Lovenox 30 mg SQ daily (WT < 150 kg, CrCl > 10-29 mL/min) *Enoxaparin/Lovenox 30 mg SQ BID (WT < 150 kg, CrCl > 30 mL/min) AND *Sequential Compression Device (SCD) Assessment and Plan Assessment and Plan Assessment: This is an 83-year-old male with a catastrophic nonsurvivable intraparenchymal hemorrhage. His ICH score is 5, predicting 100% 30 day mortality. On top of this, he has significant delayed presentation, significant midline shift, and likely already early transtentorial herniation. I have spoken at length with his and his son. Both of them agree that he would not want to be maintained on life support and this would be against his wishes. His son says that he has an active DNR. His children are in [place] and are traveling now to see him. We have all agreed that the best course of action at this point given the patient's expressed wishes are to maintain him on life support until his family can be at his bedside and then transition to palliative and comfort goals with withdrawal care and terminal extubation. In the interim, we will make the patient DNR and if he were to continue to decline, we will not intervene on any worsening of his hemodynamics. Patient remains critically ill with massive head bleed and hypertensive emergency. Active problems: Hypertensive emergency Massive intracerebral hemorrhage, ICH score 5 Acute encephalopathy Acute hypoxic and hypercarbic respiratory failure Plan: Admit to ICU Frequent neurochecks Avoid long-acting sedatives Nicardipine for goal systolic blood pressure less than 140 No weaning of mechanical ventilation Wean FiO2 for goal SPO2 greater than 90% DNR at family's request We will plan to pursue comfort measures when all family available. SCDs Hold pharmacologic DVT prophylaxis given head bleed N.p.o. This patient remains critically ill with one or more organ systems which are or may become a threat to life. I have spent in excess of 61 minutes discontinuously in the care and management of this patient. This time is exclusive of procedures, and includes, but is not limited to, evaluation of the patient, review of the medical record, discussions with family, consultants, nursing staff, or respiratory therapy, and documentation in the medical record. Code Status DNR Santosh Du MD February 27, 2018 11:20
[2018-02-27 12:28] LABS: BLOOD UREA NITROGEN 19 MG/DL (7-18)
[2018-02-27 12:29] LABS: ALBUMIN 2.7 GM/DL (3.4-5.0); ALKALINE PHOSPHATASE 68 U/L (45-117); ALT (GPT) 13 U/L (12-78); AST (GOT) 23 U/L (15-37); BICARBONATE 28.8 MEQ/L (21.0-32.0); CALCIUM 7.6 MG/DL (8.5-10.1); CHLORIDE 97 MEQ/L (98-107); CREATININE 0.98 MG/DL (0.60-1.30); GLOMERULAR FILTRATION RATE 73 ML/MIN (>89); GLUCOSE,RANDOM 148 MG/DL (74-106); SODIUM (NA) 133 MEQ/L (136-145); TOTAL BILIRUBIN ADULT 0.7 MG/DL (0.2-1.0); TOTAL PROTEIN 5.5 GM/DL (6.4-8.2); TROPONIN I 0.06 NG/ML (0.02-0.05)
[2018-02-27] MEDS ORDERED: niCARdipine 20MG/NS PREMIX 200 ML IV PRN (14:45)
[2018-02-27] MEDS ORDERED: niCARdipine 25 MG/NS 250 ML Vial2Bag or IV room IV PRN ×2 (15:00)
[2018-02-27] MEDS ORDERED: HYOSCYAMINE 0.5 MG/ML AMP IV PUSH PRN (15:45)
[2018-02-27] MEDS ORDERED: ACETAMINOPHEN 650 MG SUPP RECTAL PRN (15:45)
[2018-02-27] MEDS ORDERED: MORPHINE SULFATE 4 MG/ML INJ IV PUSH ONE (15:45)
[2018-02-27] MEDS ORDERED: LORazepam 2 MG/ML VIAL IV PUSH ONE ×2 (15:45→21:15)
[2018-02-27] MEDS ORDERED: CHLORHEXIDINE 0.12% (ORAL KIT) 15 ML CUP MT SCH (20:00)
[2018-02-27] MEDS ORDERED: MORPHINE SULFATE 4 MG/ML INJ IV PUSH PRN (21:15)
[2018-02-27] MEDS ORDERED: HYOSCYAMINE 0.5 MG/ML AMP IV PUSH ONE (21:15)
[2018-02-27] MEDS ORDERED: LORazepam 2 MG/ML VIAL IV PUSH PRN (21:15)
[2018-02-27] MEDS ORDERED: MORPHINE SULFATE 8 MG/ML INJ IV PUSH ONE (21:15)
--- NOTE | 2018-02-28 05:59 | HHI.DS ---
Summary Note Date of : February 28, 2018 Time Of : 258 Admission Date February 27, 2018 at 09:05 Admitting Diagnosis AMS, GCS 3 Diagnosis at Time of : (1) Massive supratentorial cerebral hemorrhage ICD Code: I61.9 - Nontraumatic intracerebral hemorrhage, unspecified Diagnosis: Principal Brief History This is an 83yM with an unknown history who presented by EMS for acute altered mental status. per EMS, he was last seen normal around midnight and was found unresponsive on the floor this morning by his . In the [place] emergency department, he was found to be a GCS 3 with a blown left pupil. He was emergently intubated in the emergency department. He was emergently transferred to [facility] for evaluation. I met the patient in the CT scanner with the [facility] team. His non-contrasted head CT is significant for massive intraparenchymal hemorrhage with intraventricular spread, >1cm midline shift, and evidence of transtentorial herniation. He was severely hypertensive and was started on nicardipine infusion. Due to the patient's clinical condition, no additional information is available from him. ROS unobtainable. CBC/BMP: 02/27/18 0800 02/27/18 1134 Significant Findings Laboratory Tests Test 02/27/18 08:00 02/27/18 09:24 02/27/18 11:34 Red Blood Count 3.67 MIL/MM3 (4.50-5.90) Hemoglobin 11.2 GM/DL (13.0-17.0) Hematocrit 34.2 % (39.0-51.0) Neutrophils (%) (Auto) 76.5 % (16.0-70.0) Lymphocytes # (Auto) 0.9 TH/MM3 (1.0-4.8) Prothrombin Time 11.7 SEC (9.8-11.6) Lactic Acid Level 2.3 mmol/L (0.4-2.0) 2.6 mmol/L (0.4-2.0) Arterial Blood Partial Pressure CO2 44 mmHG (38-42) Arterial Blood Partial Pressure O2 186 mmHG (61-120) Blood Gas Hemoglobin 10.6 G/DL (12.0-16.0) Blood Urea Nitrogen 19 MG/DL (7-18) Random Glucose 148 MG/DL (74-106) Total Protein 5.5 GM/DL (6.4-8.2) Albumin 2.7 GM/DL (3.4-5.0) Calcium Level 7.6 MG/DL (8.5-10.1) Sodium Level 133 MEQ/L (136-145) Chloride Level 97 MEQ/L (98-107) Estimat Glomerular Filtration Rate 73 ML/MIN (>89) Troponin I 0.06 NG/ML (0.02-0.05) Imaging Last Impressions Head CT 02/27/18856 Signed Impressions: Service Date/Time: February 09:52 - CONCLUSION: Extensive intracranial hemorrhage as noted above. Large acute intraparenchymal hemorrhage in the left temporal parietal lobe measuring at least 9.5 x 5.4 cm. There is mass effect and midline shift to the right by at least 1 cm. There is diffuse intraventricular hemorrhage. Kavon Sinha MD Chest X-Ray 02/27/1857 Signed Impressions: Service Date/Time: February 09:12 - CONCLUSION: The endotracheal tube appears in good position. No evidence of pneumothorax. Kavon Sinha MD Hospital Course The patient had a non-survivable intracerebral hemorrhage. remained comatose. family elected to withdraw care in congruence with his documented wishes. he was made comfortable and terminally extubated. he at 02:59am. Santosh Du MD February 28, 2018 05:59
--- NOTE | 2018-02-28 11:45 | EKG ---
Date Performed: 02/27/2018 Time Performed: 09:10:04 PTAGE: 83 years EKG: Sinus rhythm WITH SINUS ARRHYTHMIA RIGHT BUNDLE BRANCH BLOCK VOLTAGE CRITERIA FOR LVH ABNORMAL ECG PREVIOUS TRACING : 08/08/2017 08.36 DOCTOR: Cora Lane Interpretating Date/Time 02/28/2018 11:43:12
== END 2018-02-28 04:06 | disposition expired | DRG 64 ==
LOC: PHED 08:49 → PHEDA 09:05 → N03A 10:06
PROVIDERS: ADMIT Internal Medicine Critical Care Medicine; ATTEND Internal Medicine Critical Care Medicine
PROC: 5A1935Z Respiratory Ventilation, Less than 24 Consecutive Hours (ICD-10-PCS; principal; 2018-02-27)
PROC: 0BH17EZ Insertion of Endotracheal Airway into Trachea, Via Natural or Artificial Opening (ICD-10-PCS; 2018-02-27)
DX: I61.9 Nontraumatic intracerebral hemorrhage, unspecified (principal); G93.5 Compression of brain; J96.01 Acute respiratory failure with hypoxia; J96.02 Acute respiratory failure with hypercapnia; G93.40 Encephalopathy, unspecified; I16.1 Hypertensive emergency; N17.9 Acute kidney failure, unspecified; J44.9 Chronic obstructive pulmonary disease, unspecified; I50.9 Heart failure, unspecified; I48.91 Unspecified atrial fibrillation; I11.0 Hypertensive heart disease with heart failure; E78.00 Pure hypercholesterolemia, unspecified; R40.2430 Glasgow coma scale score 3-8, unspecified time; R00.1 Bradycardia, unspecified; I45.10 Unspecified right bundle-branch block; H40.9 Unspecified glaucoma; H91.90 Unspecified hearing loss, unspecified ear; F41.9 Anxiety disorder, unspecified; Z51.5 Encounter for palliative care; Z66 Do not resuscitate; Z85.038 Personal history of other malignant neoplasm of large intestine; Z85.828 Personal history of other malignant neoplasm of skin; Z86.718 Personal history of other venous thrombosis and embolism; Z87.891 Personal history of nicotine dependence; Z88.1 Allergy status to other antibiotic agents; Z98.1 Arthrodesis status
CPT/HCPCS: 31500; 36600; 70450; 71045; 80053; 82805; 83605; 84484; 85025; 85610; 85730; 93005; 94002; J1980; J2060; J2150; J2270; J7050